=== PATIENT | female | born 1945 | race Caucasian/White ===

== ENCOUNTER → 2016-10-24 | Day surgery (SDC) | payer OTHER, MEDICARE ==
[~2016-10-24] VITALS: Ht 167.6 cm; Wt 81.6 kg
[~2016-10-24] MED LIST: FENOFIBRATE134 M1 PO; LISINOPRIL-HCT1 EAC2 PO; SIMVASTATIN20 M2 PO; SYNTHROID100 MCG PO
--- NOTE | 2016-10-31 12:05 | Operative Report ---
Operative/Inv Procedure Report Surgery Date: 10/24/16 Name of Procedure: D&C hysteroscopy Pre-Operative Diagnosis: POST menopausal bleeding Post-Operative Diagnosis: SAME Estimated Blood Loss: scant Surgeon/Sales And Operations Trainee: SHAHID ALMEIDA MD Anesthesia: moderate sedation Operative/Procedure Note Note: Patient was taken to the operating room placed in dorsal supine position. After adequate anesthesia, patient was prepped and draped for surgery. Examination under anesthesia was performed. CO2 tenaculum was placed on the anterior lip of the cervix gentle downward traction was used. The cervix was dilated 29 Hegar to left insertion of the hysteroscope. Under direct visualization to hysteroscopy was performed using gas hysteroscope was removed and endocervical curettage was performed. And endometrial curettage was performed. All instruments removed from the vagina. The counts were correct the patient was awakened from anesthesia. And transported to recovery room awake and alert. Findings: Atrophic uterine lining slightly enlarged uterus no adnexal masses normal cervical appearance
== END ==
LOC: STS 03:50
DX: N95.0 Postmenopausal bleeding (principal); I10 Essential (primary) hypertension; E03.9 Hypothyroidism, unspecified; J45.909 Unspecified asthma, uncomplicated; Z85.3 Personal history of malignant neoplasm of breast
CPT/HCPCS: 88305; J0131